=== PATIENT | female | born 1975 | race Caucasian/White ===

== ENCOUNTER 2018-04-26 15:48 | Emergency (ER) | payer BC, OTHER ==
[~2018-04-26] VITALS: Ht 162.6 cm; Wt 70.8 kg
--- NOTE | 2018-04-26 16:00 | NUR ---
Pt states that she dropped a 10 lb dumbell onto her right foot. Swelling and purple discoloration to distal top of right foot. Able to move dorsi-flex foot and rotate about ankle, unable to move toes r/t pain. Cap refill , 3 sec to nail beds.
--- NOTE | 2018-04-26 16:00 | NUR ---
PT TO BED 4 VIA W/C
[2018-04-26 16:01] VITALS: BP_SYST 146
--- NOTE | 2018-04-26 16:04 | NUR ---
Radiology at bedside.
--- NOTE | 2018-04-26 16:15 | NUR ---
Dr. Haley at bedside.
[2018-04-26] MEDS ORDERED: IBUPROFEN 600 MG TABLET PO ONE (17:15)
--- NOTE | 2018-04-26 17:35 | NUR ---
Ortho shoe applied to Right foot, non-constrictive. Cap refill < 3 sec.
[2018-04-26 17:52] VITALS: BP_SYST 127
--- NOTE | 2018-04-26 17:52 | NUR ---
Patient given written and verbal discharge instructions and verbalizes understanding. ER MD discussed with patient the results and treatment provided. Patient in stable condition. ID arm band Rx of Naprosyn given. Patient educated on pain management and to follow up with PMD. Pain Scale 2/10. Opportunity for questions provided and answered. Medication side effect fact sheet provided. Pt discharged by Dr. Haley.
== END 2018-04-26 17:52 | disposition home or self-care (01) ==
LOC: SED 15:48
DX: S90.31XA Contusion of right foot, initial encounter (principal); K21.9 Gastro-esophageal reflux disease without esophagitis; Z90.49 Acquired absence of other specified parts of digestive tract; W20.8XXA Other cause of strike by thrown, projected or falling object, initial encounter; Y93.89 Activity, other specified; Y92.89 Other specified places as the place of occurrence of the external cause; Y99.8 Other external cause status
CPT/HCPCS: 99284

== ENCOUNTER 2024-01-17 12:39 | Emergency (ER) | payer BC, OTHER ==
[~2024-01-17] VITALS: Ht 165.1 cm; Wt 68.9 kg
[2024-01-17 12:45] VITALS: BP_SYST 149; PULSE 68; RESP 18; TEMP 98.3; O2SAT 98
[2024-01-17 13:16] LABS: BASOPHILS # (AUTO) 0.1 K/uL (0.0-0.2); BASOPHILS % (AUTO) 0.8 % (0.0-2.0); EOSINOPHILS # (AUTO) 0.5 K/uL (0.0-0.4); EOSINOPHILS % (AUTO) 6.2 % (0.0-4.0); HEMATOCRIT 41.8 % (36-48); HEMOGLOBIN 14.3 g/dL (12.0-16.0); LYMPHOCYTES # (AUTO) 2.2 K/uL (1.0-5.5); LYMPHOCYTES % (AUTO) 26.2 % (20.5-51.5); MEAN CORPUSCULAR HEMOGLOBIN 31 pg (27-31); MEAN CORPUSCULAR HGB CONC 34 % (32-36); MEAN CORPUSCULAR VOLUME 89 fL (79.0-98.0); MONOCYTES # (AUTO) 0.7 K/uL (0.0-1.0); MONOCYTES % (AUTO) 8.5 % (1.7-9.3); NEUTROPHILS # (AUTO) 4.8 K/uL (1.8-7.7); NEUTROPHILS % (AUTO) 58.3 % (40.0-70.0); PLATELET COUNT (AUTO) 205 K/uL (130-430); RED BLOOD CELL COUNT(AUTO) 4.69 MIL/uL (4.2-6.2); RED CELL DISTRIBUTION WIDTH 13.3 % (9.0-15.0); WHITE BLOOD COUNT (AUTO) 8.3 K/uL (4.8-10.8)
[2024-01-17 13:20] LABS: ERYTHROCYTE SEDIMENTATION RATE 8 MM/HR (0-20)
[2024-01-17 13:40] LABS: CALCIUM 9.1 mg/dL (8.4-11.0); CREATININE 0.77 mg/dL (0.55-1.30); POTASSIUM 3.7 mmol/L (3.5-5.1)
[2024-01-17] MEDS: KETOROLAC TROMETHAMINE 30 MG VIAL IVP ONE (15:18)
[2024-01-17] MEDS: DIPHENHYDRAMINE INJ 50 MG/ML VIAL IVP ONE (15:19)
[2024-01-17] MEDS: METOCLOPRAMIDE HCL 10 MG/2 ML VIAL IVP ONE (15:19)
[2024-01-17] MEDS: NACL 0.9% 1,000 ML IV ONE (15:37)
[2024-01-17] MEDS ORDERED: HYDR-3917 PO (16:12)
[2024-01-17] MEDS ORDERED: ONDA-8 TL (16:13)
[2024-01-17 17:12] VITALS: BP_SYST 132; PULSE 68; RESP 18; TEMP 98.3; O2SAT 98
== END 2024-01-17 17:09 | disposition home or self-care (01) ==
LOC: SED 12:39
DX: R51.9 Headache, unspecified (principal); R11.10 Vomiting, unspecified; K21.9 Gastro-esophageal reflux disease without esophagitis
CPT/HCPCS: 99285; 96374; 70450; 96375; 96361; 80048; 85025; 85651; 36415; 81025; 82397; J1200; J1885; J2765; J7030